=== PATIENT | female | born 1965 | race Asian ===

== ENCOUNTER 2020-06-02 17:24 | Emergency (ER) | payer OTHER ==
[~2020-06-02] VITALS: Ht 162.6 cm; Wt 95.3 kg
[2020-06-02] MEDS ORDERED: NORVASC 2.5 MG2.5 M1 PO (17:35)
[2020-06-02] MEDS ORDERED: LISINOPRIL2.5 MG PO (17:35)
[2020-06-02 18:34] LABS: ABSOLUTE EOSINOPHILS 0.2 thou/uL (0.0-0.7); ABSOLUTE LYMPHOCYTES 3.7 thou/uL (0.8-5.3); ABSOLUTE MONOCYTES 0.5 thou/uL (0.0-1.2); ABSOLUTE NEUTROPHILS 5.1 thou/uL (1.6-8.1); BASOPHILS 0.4 %; EOSINOPHILS 2.4 %; HEMATOCRIT 40.2 % (37.0-47.0); HEMOGLOBIN 13.4 gm/dL (12.0-15.0); LYMPHOCYTES 38.6 %; MCH 28.7 pg (26.0-34.0); MCHC 33.2 g/dL (28.0-37.0); MCV 86.5 fL (80.0-100.0); MONOCYTES 5.6 %; MPV 9.4 fl. (7.2-11.1); NUCLEATED RBCS 0 /100WBC; PLATELET COUNT* 241 thou/uL (150-400); RBC 4.65 mil/uL (4.20-5.00); RDW-CV 14.7 % (10.5-14.5); WBC 9.6 thou/uL (4.0-11.0)
[2020-06-02 18:39] LABS: CALCIUM 8.4 mg/dL (8.5-10.1); CREATININE 1.7 mg/dL (0.6-1.3); POTASSIUM 3.9 mmol/L (3.5-5.1)
[2020-06-02 18:50] LABS: ALBUMIN 3.7 g/dL (3.4-5.0); TOTAL BILIRUBIN 0.8 mg/dL (<0.1-1.0); TOTAL PROTEIN 7.9 g/dL (6.4-8.2)
[2020-06-02] MEDS ORDERED: PRINIVIL20 M1 PO (21:25)
[2020-06-02] MEDS ORDERED: NORVASC10 MG PO (21:25)
[2020-06-02 21:44] VITALS: BP 184/129
--- NOTE | 2020-06-04 12:53 | EKG ---
[place] [address] ELECTROCARDIOGRAM REPORT Name: KATHRYN BUENO Room: [facility]#: [id number] Admission: 06/02/20 Attend Phys: Discharge: 06/02/20 Date of : 61 Date of Service: 06/02/20 1759 Report #: [id number] THIS REPORT FOR: //name// [facility] ED Test Date: 2020-06-02 Test Time: 17:59:18 Pat Name: KATHRYN BUENO Department: Room: Gender: F [employer]: : 1965 Requested By: Jarvis Olsen Order Number: [id number] MD: Douglas Sanchez Measurements Intervals [place] Rate: 89 P: 49 IN: 158 QRS: -23 QRSD: 97 T: QT: 401 QTc: 488 Interpretive Statements Sinus rhythm Atrial premature complex Borderline left axis deviation Nonspecific T abnormalities, lateral leads Minimal ST elevation, lateral leads Borderline prolonged QT interval Baseline wander in lead(s) I,aVL,V1 No previous ECG available for comparison Electronically Signed On 06-04-2020 12:53:25 CDT by Douglas Sanchez [email or web address] <ELECTRONICALLY SIGNED> By: Douglas Sanchez MD, FACC 06/04/20 1253 1759 1759 Douglas Sanchez MD, FACC /EPI
== END 2020-06-02 21:47 | disposition home or self-care (01) ==
LOC: M.ERS 17:24
PROVIDERS: Emergency Medicine Emergency Medical Services
DX: R06.00 Dyspnea, unspecified (principal); I10 Essential (primary) hypertension; E11.9 Type 2 diabetes mellitus without complications

== ENCOUNTER 2021-08-09 22:07 | Emergency (ER) | payer OTHER ==
[~2021-08-09] VITALS: Ht 160 cm; Wt 90.7 kg
[~2021-08-09 22:07] MED LIST: LISINOPRIL2.5 MG PO; NORVASC 2.5 MG2.5 M1 PO; NORVASC10 MG PO; PRINIVIL20 M1 PO
[2021-08-09 22:55] LABS: ABSOLUTE BASOPHILS 0.1 thou/uL (0.0-0.2); ABSOLUTE EOSINOPHILS 0.4 thou/uL (0.0-0.7); ABSOLUTE LYMPHOCYTES 2.6 thou/uL (0.8-5.3); ABSOLUTE MONOCYTES 0.4 thou/uL (0.0-1.2); ABSOLUTE NEUTROPHILS 4.7 thou/uL (1.6-8.1); BASOPHILS 0.7 %; EOSINOPHILS 4.8 %; HEMATOCRIT 37.1 % (37.0-47.0); LYMPHOCYTES 31.3 %; MCH 28.5 pg (26.0-34.0); MCHC 32.4 g/dL (28.0-37.0); MCV 87.8 fL (80.0-100.0); MONOCYTES 5.4 %; MPV 8.8 fl. (7.2-11.1); NUCLEATED RBCS 0 /100WBC; PLATELET COUNT* 257 thou/uL (150-400); POLYS 57.8 %; RBC 4.23 mil/uL (4.20-5.00); RDW-CV 13.5 % (10.5-14.5); WBC 8.2 thou/uL (4.0-11.0)
[2021-08-09 23:05] LABS: CREATININE 1.8 mg/dL (0.6-1.3); POTASSIUM 3.8 mmol/L (3.5-5.1)
[2021-08-09 23:15] LABS: ALBUMIN 3.3 g/dL (3.4-5.0); MAGNESIUM 1.9 mg/dL (1.8-2.4); TOTAL BILIRUBIN 0.7 mg/dL (<0.1-1.0); TOTAL PROTEIN 6.8 g/dL (6.4-8.2)
[2021-08-10 00:35] LABS: URINE BILIRUBIN NEGATIVE (Negative); URINE BLOOD NEGATIVE (Negative); URINE CLARITY CLEAR; URINE COLOR YELLOW; URINE GLUCOSE-RANDOM NEGATIVE (Negative); URINE KETONES NEGATIVE (Negative); URINE LEUKOCYTES-REFLEX NEGATIVE (Negative); URINE NITRITE-REFLEX NEGATIVE (Negative); URINE PROTEIN TRACE (Negative); URINE UROBILINOGEN 0.2 E.U./dl (0.2-1.0)
[2021-08-10 00:45] LABS: AMP/METHAMP POSITIVE (Negative); BARBITURATES Negative (Negative); BENZODIAZEPINES Negative (Negative); COCAINE Negative (Negative); METHADONE Negative (Negative); OPIATES Negative (Negative); PCP Negative (Negative); THC Negative (Negative)
[2021-08-10] MEDS ORDERED: HYDROCHLOROTH12.5 M1 PO (02:33)
[2021-08-10] MEDS ORDERED: LOPRESSOR50 MG PO (02:33)
[2021-08-10 02:48] VITALS: BP 158/88
--- NOTE | 2021-08-10 14:35 | EKG ---
[place] [address] ELECTROCARDIOGRAM REPORT Name: KATHRYN BUENO Room: [facility]#: [id number] Admission: 08/09/21 Attend Phys: Discharge: 08/10/21 Date of : 61 Date of Service: 08/09/21 2254 Report #: [id number] THIS REPORT FOR: //name// [facility] ED Test Date: 2021-08-09 Test Time: 22:54:14 Pat Name: KATHRYN BUENO Department: Room: Gender: F Bargeman: MR : 1965 Requested By: Karen Valles Order Number: [id number] MD: Jared Panda Measurements Intervals [place] Rate: 85 P: 54 VT: 160 QRS: 59 QRSD: 114 T: 257 QT: 400 QTc: 476 Interpretive Statements Sinus rhythm Ventricular premature complex Borderline intraventricular conduction delay Borderline T abnormalities, diffuse leads Compared to ECG 06/02/2020 17:59:18 Ventricular premature complex(es) now present Atrial premature complex(es) no longer present ST (T wave) abnormalities have diminished Electronically Signed On 08-10-2021 14:35:26 CDT by Jared Panda [email or web address] <ELECTRONICALLY SIGNED> By: Jared Panda MD, [facility] 08/10/21 1435 2254 2254 Jared Panda MD, [facility] /EPI
== END 2021-08-10 02:51 | disposition home or self-care (01) ==
LOC: M.ERS 22:07
PROVIDERS: Emergency Medicine
DX: I10 Essential (primary) hypertension (principal); F15.10 Other stimulant abuse, uncomplicated; J81.0 Acute pulmonary edema; E11.9 Type 2 diabetes mellitus without complications; Z20.822 Contact with and (suspected) exposure to COVID-19